=== PATIENT | male | born 1970 | race Caucasian/White ===

== ENCOUNTER 2017-09-24 13:14 | Emergency (ER) | payer BC ==
[2017-09-24] MEDS: IBUPROFEN 800 MG TAB PO (16:32)
== END 2017-09-24 18:17 | disposition home or self-care (01) ==
LOC: FTE 13:14
DX: S90.01XA Contusion of right ankle, initial encounter (principal); F17.210 Nicotine dependence, cigarettes, uncomplicated; W11.XXXA Fall on and from ladder, initial encounter; Y92.9 Unspecified place or not applicable
CPT/HCPCS: 73590; 73610-RT; 73630; 99283-25